=== PATIENT | male | born 1985 | race Caucasian/White ===

== ENCOUNTER 2018-08-10 14:23 | Emergency (ER) | payer OTHER ==
[~2018-08-10] VITALS: Ht 182.9 cm; Wt 74.8 kg
[~2018-08-10 14:23] MED LIST: DIPH25CA39; OMEP20TA44
[2018-08-10 16:53] VITALS: BP 136/97
[2018-08-10] MEDS ORDERED: MECLIZINE HCL 25 MG TAB PO ONE (17:30)
== END 2018-08-10 17:51 | disposition home or self-care (01) ==
LOC: ER 14:23
DX: S09.11XA Strain of muscle and tendon of head, initial encounter (principal); S09.90XA Unspecified injury of head, initial encounter; R42 Dizziness and giddiness; K21.9 Gastro-esophageal reflux disease without esophagitis; Z91.010 Allergy to peanuts; Z79.899 Other long term (current) drug therapy; W51.XXXA Accidental striking against or bumped into by another person, initial encounter; Y93.89 Activity, other specified; Y99.8 Other external cause status; Y92.89 Other specified places as the place of occurrence of the external cause
CPT/HCPCS: 70110; 70450; 70486; 99284; J8597